=== PATIENT | female | born 1960 | race Caucasian/White ===

== ENCOUNTER → 2017-08-05 | Outpatient (CLI) | payer OTHER ==
--- NOTE | 2017-08-05 13:12 | REPMRS ---
Patient History The patient states she has not had a clinical breast exam in over a year. Patient is nulliparous. Took hormonal contraceptives for 7 years. Digital Mammo Screening Bilat: August 05, 2017 - Exam #: [id number] Bilateral CC and MLO view(s) were taken. Technologist: Chloe Busch, Technologist Prior study comparison: August 02, 2016, bilateral digital mammo screening bilat performed at [facility]. June 11, 2015, bilateral digital mammo screening bilat performed at [facility]. June 10, 2014, bilateral bilat screen digital mammo, performed at [facility] ([facility]). FINDINGS: The breast tissue is heterogeneously dense. This may lower the sensitivity of mammography. There is a moderate amount of heterogeneously dense fibroglandular tissue which is fairly symmetric. There is no interval development of dominant mass, architectural distortion, or clustered microcalcification typical of malignancy. There has been no change in the appearance of the mammogram from the prior studies. ASSESSMENT: BI-RADS/ACR category 1 mammogram. Negative. Recommendation Routine screening mammogram of both breasts in 1 year (for women over age 40). This mammogram was interpreted with the aid of an FDA-approved computer-aided dectection system. Electronically Signed By: Jesus Barroso MD 08/05/17 [id number]
== END ==
LOC: M RAD 09:28
PROVIDERS: ATTEND Nurse Practitioner Family
DX: Z12.31 Encounter for screening mammogram for malignant neoplasm of breast (principal); Z92.89 Personal history of other medical treatment; Z92.0 Personal history of contraception

== ENCOUNTER → 2018-02-08 | Outpatient (REF) | payer OTHER ==
[2018-02-10 12:49] LABS: HEPATITIS C VIRUS ABY INDEX 0.1 INDEX (<0.8)
[2018-02-10 12:50] LABS: HEPATITIS B CORE ANTIBODY IGM NEGATIVE (NEGATIVE)
[2018-02-10 12:51] LABS: HIV 1&2 SCREEN CENTAUR NEGATIVE (NEGATIVE)
[2018-02-10 12:55] LABS: HEPATITIS B SURFACE ANTIGEN NEGATIVE (NEGATIVE)
[2018-02-10 14:19] LABS: ANTINUCLEAR ANTIBODIES DIRECT Negative (Negative)
== END ==
LOC: M LAB REF 17:23
DX: D72.818 Other decreased white blood cell count (principal)
CPT/HCPCS: 87340

== ENCOUNTER → 2018-08-08 | Outpatient (CLI) | payer OTHER | LOC: M RAD 11:43 | DX: Z12.31 Encounter for screening mammogram for malignant neoplasm of breast (principal); Z92.0 Personal history of contraception | CPT/HCPCS: 77067 ==